=== PATIENT | male | born 1970 | race Caucasian/White ===

== ENCOUNTER 2025-05-16 08:22 | Inpatient (IN) | payer OTHER ==
[~2025-05-16] VITALS: Ht 170.2 cm; Wt 61.2 kg
[2025-05-16 08:25] VITALS: O2SAT 100
[2025-05-16 09:13] LABS: BASOPHILS % 0.1 % (0.0-2.0); EOSINOPHILS % 0.4 % (0.0-5.0); HEMATOCRIT. 35.9 % (42.0-52.0); HEMOGLOBIN. 12.3 g/dL (14.0-18.0); LYMPHOCYTES % 11.4 % (20.0-50.0); MEAN PLATELET VOLUME 7.0 fl (7.4-10.4); MONOCYTES % 2.2 % (2.0-8.0); NEUTROPHILS % 85.9 % (40.0-76.0); PLATELET 124 x1000/uL (130-400); RED BLOOD CELL COUNT 3.65 mill/uL (4.7-6.1); RED CELL DISTRIBUTION WIDTH 13.9 % (11.6-14.6)
[2025-05-16 09:31] LABS: CREATININE 0.7 mg/dL (0.6-1.3); UREA NITROGEN BLOOD 16 mg/dL (9-23)
[2025-05-16 09:32] LABS: ASPARTATE AMINOTRANSFERASE 91 IU/L (<34); PROTEIN TOTAL 6.7 g/dL (6.0-8.3); TROPONIN I HIGH SENSITIVITY 9 ng/L (3.0-53)
[2025-05-16 09:33] LABS: BILIRUBIN DIRECT 0.3 mg/dL (<=3.0); BILIRUBIN TOTAL 1.0 mg/dL (0.1-1.0)
[2025-05-16] MEDS: ONDANSETRON HCL 4MG/2ML INJ IV ONE (09:43)
[2025-05-16] MEDS: MECLIZINE 25MG TABLET PO ONE (09:43)
[2025-05-16 11:14] LABS: TROPONIN I HIGH SENSITIVITY 10 ng/L (3.0-53)
[2025-05-16 12:00] VITALS: BP 106/74; PULSE 63; RESP 16; TEMP 36.3; TEMP 36.3068; O2SAT 100
[2025-05-16] MEDS ORDERED: APIX5TAB PO (13:59)
[2025-05-16] MEDS ORDERED: ONDANSETRON HCL 4MG/2ML INJ IV PRN (14:00)
[2025-05-16] MEDS ORDERED: DOCUSATE SODIUM 100MG CAPSULE PO PRN (14:00)
[2025-05-16] MEDS ORDERED: GLIP5TAB22 PO (14:00)
[2025-05-16] MEDS ORDERED: IPRATROPIUM/ALBUTEROL 0.5-3(2.5)MG/3ML NEB HHN PRN (14:00)
[2025-05-16] MEDS ORDERED: GUAIFENESIN 200MG/10ML SUGAR FREE UDC PO PRN (14:00)
[2025-05-16] MEDS ORDERED: DEXTROSE 50% WATER 50ML SYRINGE IV PRN (14:00)
[2025-05-16] MEDS: ASPIRIN 325MG EC TABLET PO SCH (15:28)
[2025-05-16] MEDS: ENOXAPARIN 80MG/0.8ML SYR SUBCUT SCH (15:29)
[2025-05-16] MEDS: SODIUM CHLORIDE 0.9% 1,000 ML IV SCH (15:30)
[2025-05-16 16:00] VITALS: BP 105/70; PULSE 58; RESP 18; TEMP 36.3; O2SAT 99
[2025-05-16] MEDS: INSULIN LISPRO 100 UNITS/ML SUBCUT SCH (17:50)
[2025-05-16] MEDS: BLOOD SUGAR DIAGNOSTIC STRIP TEST SCH (18:05)
[2025-05-16 18:48] LABS: HEPATITIS C AB NON REACTIVE (Neg) (Negative)
[2025-05-16 18:49] LABS: PROTEIN TOTAL 6.8 g/dL (6.0-8.3)
[2025-05-16 18:51] LABS: ASPARTATE AMINOTRANSFERASE 73 IU/L (<34); BILIRUBIN DIRECT 0.3 mg/dL (<=3.0); BILIRUBIN TOTAL 0.9 mg/dL (0.1-1.0)
[2025-05-16 18:54] LABS: INR 1.1
[2025-05-16 20:00] VITALS: BP 103/68; PULSE 58; RESP 19; TEMP 36.2; O2SAT 99
[2025-05-16] MEDS: PANTOPRAZOLE 40MG DR TABLET PO SCH (21:25)
[2025-05-16] MEDS: ATORVASTATIN CALCIUM 40MG TABLET PO SCH (21:25)
[2025-05-17] VITALS (8 sets, daily range): BP systolic 88–120; BP diastolic 60–76; PULSE 49–61; RESP 16–19; TEMP 35.8–36.6; O2SAT 98–100
[2025-05-17] MEDS: ENOXAPARIN 80MG/0.8ML SYR SUBCUT SCH (05:11)
[2025-05-17 06:10] LABS: CREATININE 0.6 mg/dL (0.6-1.3); TRIGLYCERIDE 83 mg/dL (0-150); UREA NITROGEN BLOOD 15 mg/dL (9-23)
[2025-05-17 06:11] LABS: LDL CHOLESTEROL 125 mg/dL (5-100)
[2025-05-17 06:26] LABS: BASOPHILS % 0.2 % (0.0-2.0); EOSINOPHILS % 1.5 % (0.0-5.0); HEMATOCRIT. 33.5 % (42.0-52.0); HEMOGLOBIN. 11.4 g/dL (14.0-18.0); LYMPHOCYTES % 19.5 % (20.0-50.0); MEAN PLATELET VOLUME 7.2 fl (7.4-10.4); MONOCYTES % 3.3 % (2.0-8.0); NEUTROPHILS % 75.5 % (40.0-76.0); PLATELET 108 x1000/uL (130-400); RED BLOOD CELL COUNT 3.45 mill/uL (4.7-6.1); RED CELL DISTRIBUTION WIDTH 14.2 % (11.6-14.6)
[2025-05-17] MEDS: ASPIRIN 81MG EC TABLET PO SCH (09:35)
[2025-05-18] VITALS: BP 131/84; PULSE 58; RESP 16; TEMP 36.5; O2SAT 100
[2025-05-18 04:00] VITALS: BP 122/84; PULSE 55; RESP 16; TEMP 36.3; O2SAT 98
[2025-05-18 07:36] LABS: CREATININE 0.7 mg/dL (0.6-1.3); UREA NITROGEN BLOOD 10 mg/dL (9-23)
[2025-05-18 07:38] LABS: BASOPHILS % 1.0 % (0.0-2.0); EOSINOPHILS % 4.6 % (0.0-5.0); HEMATOCRIT. 36.2 % (42.0-52.0); HEMOGLOBIN. 12.4 g/dL (14.0-18.0); LYMPHOCYTES % 14.5 % (20.0-50.0); MEAN PLATELET VOLUME 7.4 fl (7.4-10.4); MONOCYTES % 3.2 % (2.0-8.0); NEUTROPHILS % 76.7 % (40.0-76.0); PLATELET 121 x1000/uL (130-400); RED BLOOD CELL COUNT 3.74 mill/uL (4.7-6.1); RED CELL DISTRIBUTION WIDTH 14.2 % (11.6-14.6)
[2025-05-18 08:00] VITALS: BP 119/80; PULSE 60; RESP 17; TEMP 35.8; O2SAT 99
[2025-05-18 10:35] LABS: TROPONIN I HIGH SENSITIVITY 11 ng/L (3.0-53)
[2025-05-18 16:00] VITALS: BP 111/71; PULSE 63; RESP 18; TEMP 36.2; O2SAT 99
[2025-05-18 20:00] VITALS: BP 104/67; PULSE 64; RESP 18; TEMP 36.4; O2SAT 98
[2025-05-19] VITALS: BP 130/82; PULSE 57; RESP 18; TEMP 36.3; O2SAT 100
[2025-05-19 04:00] VITALS: BP 126/77; PULSE 63; RESP 18; TEMP 36.1; O2SAT 99
[2025-05-19 08:00] VITALS: BP 120/78; PULSE 62; RESP 18; TEMP 36.7; O2SAT 98
[2025-05-19 09:05] LABS: BASOPHILS % 1.0 % (0.0-2.0); EOSINOPHILS % 8.0 % (0.0-5.0); HEMATOCRIT. 37.0 % (42.0-52.0); HEMOGLOBIN. 12.6 g/dL (14.0-18.0); LYMPHOCYTES % 18.9 % (20.0-50.0); MEAN PLATELET VOLUME 6.6 fl (7.4-10.4); MONOCYTES % 4.4 % (2.0-8.0); NEUTROPHILS % 67.7 % (40.0-76.0); PLATELET 137 x1000/uL (130-400); RED BLOOD CELL COUNT 3.80 mill/uL (4.7-6.1); RED CELL DISTRIBUTION WIDTH 14.2 % (11.6-14.6)
[2025-05-19 09:34] LABS: CREATININE 0.7 mg/dL (0.6-1.3); UREA NITROGEN BLOOD 7 mg/dL (9-23)
[2025-05-19 09:55] VITALS: BP 120/78; PULSE 62; RESP 18; TEMP 98.1
[2025-05-19] MEDS: ATORVASTATIN CALCIUM 40MG TABLET PO NR (11:05)
[2025-05-19 11:22] VITALS: BP 124/79; PULSE 71; RESP 18; TEMP 36.2; O2SAT 98
== END 2025-05-19 11:20 | disposition home or self-care (01) | DRG 64 ==
LOC: ER 08:22 → 6WST 10:59 → EDBEDREQTM 11:01 → EDBEDREQ 11:01
PROVIDERS: ADMIT Internal Medicine; ATTEND Internal Medicine
DX: I63.81 Other cerebral infarction due to occlusion or stenosis of small artery (principal); D61.810 Antineoplastic chemotherapy induced pancytopenia; K83.1 Obstruction of bile duct; C25.9 Malignant neoplasm of pancreas, unspecified; K81.0 Acute cholecystitis; D50.9 Iron deficiency anemia, unspecified; I69.320 Aphasia following cerebral infarction; Z79.01 Long term (current) use of anticoagulants; E11.65 Type 2 diabetes mellitus with hyperglycemia; I10 Essential (primary) hypertension; Z95.828 Presence of other vascular implants and grafts; R74.01 Elevation of levels of liver transaminase levels; T45.1X5A Adverse effect of antineoplastic and immunosuppressive drugs, initial encounter; E78.5 Hyperlipidemia, unspecified; K82.8 Other specified diseases of gallbladder; Z79.82 Long term (current) use of aspirin; Z79.84 Long term (current) use of oral hypoglycemic drugs; Z79.899 Other long term (current) drug therapy; Z85.07 Personal history of malignant neoplasm of pancreas; Y92.89 Other specified places as the place of occurrence of the external cause
CPT/HCPCS: 36415; 70551; 71045; 76705; 80048; 80061; 80076; 82962; 83036; 83735; 84145; 84443; 84484; 85025; 86301; 86705; 86850; 86900; 87340; 93005; 93306; 93880; 93970; 96374; 97162; 99291; J1650; J1815; J2405; J7030; J8597